=== PATIENT | female | born 1955 | race Caucasian/White ===

== ENCOUNTER → 2020-09-24 | Outpatient (CLI) | payer BC, OTHER ==
[~2020-09-24] MED LIST: ATORVASTATIN CA20 MG PO; BACTROBAN OINT22 GM EXT; CELECOXIB200 MG PO; COLACE 100MG C100 MG PO; ELIQUIS2.5 MG PO; FERROUS GLUCON324 M1 PO; FEXOFENADINE H180 MG PO; FOLIC ACID0.8 MG PO; KEFLEX500 MG PO; MIRALAX17 GM PO; PERCOCET 10-321 EACH PO; TIZANIDINE HCL4 MG PO; TYLENOL 500 MG500 MG PO; VITAMIN D325 MCG PO; ZINC50 M1 PO
== END ==
LOC: KOH-I 13:30
DX: M25.552 Pain in left hip (principal); M54.5 Low back pain; M51.36 Other intervertebral disc degeneration, lumbar region
CPT/HCPCS: 72110; 73502

== ENCOUNTER → 2020-11-19 | Outpatient (CLI) | payer BC, OTHER | LOC: KOH-I 09:42 | DX: M25.552 Pain in left hip (principal); M19.09 Primary osteoarthritis, other specified site | CPT/HCPCS: 73721 ==

== ENCOUNTER → 2021-07-21 | Outpatient (CLI) | payer BC | LOC: EXRD 13:57 | DX: R09.89 Other specified symptoms and signs involving the circulatory and respiratory systems (principal) | CPT/HCPCS: 93926 ==

== ENCOUNTER → 2021-08-04 | Outpatient (CLI) | payer BC ==
[2021-08-04 09:08] LABS: RED BLOOD COUNT 4.71 M/UL (4.00-5.10); WHITE BLOOD COUNT 7.6 K/UL (4.5-11.0)
[2021-08-04 09:20] LABS: BUN/CREATININE RATIO 13 (0-10)
== END ==
LOC: EDSTATUS 08:00 → OPSV2 08:00
PROVIDERS: Orthopaedic Surgery
DX: Z01.818 Encounter for other preprocedural examination (principal); M16.12 Unilateral primary osteoarthritis, left hip
CPT/HCPCS: 80048; 85027; 93005

== ENCOUNTER → 2021-11-02 | Outpatient (CLI) | payer BC | LOC: KOH-I 15:38 | DX: S22.20XA Unspecified fracture of sternum, initial encounter for closed fracture (principal); M54.9 Dorsalgia, unspecified; M47.816 Spondylosis without myelopathy or radiculopathy, lumbar region | CPT/HCPCS: 71120; 72070; 72100 ==

== ENCOUNTER → 2021-12-01 | Outpatient (CLI) | payer BC | LOC: KOH-I 12:21 | DX: M54.2 Cervicalgia (principal); M47.812 Spondylosis without myelopathy or radiculopathy, cervical region | CPT/HCPCS: 72040 ==

== ENCOUNTER → 2021-12-13 | Outpatient (CLI) | payer BC | LOC: KOH-I 13:20 | DX: I10 Essential (primary) hypertension (principal); S26.91XA Contusion of heart, unspecified with or without hemopericardium, initial encounter; I65.23 Occlusion and stenosis of bilateral carotid arteries | CPT/HCPCS: 93880 ==

== ENCOUNTER → 2022-01-26 | Outpatient (CLI) | payer BC | LOC: KOH-I 13:02 | DX: S22.20XA Unspecified fracture of sternum, initial encounter for closed fracture (principal) | CPT/HCPCS: 71120 ==